=== PATIENT | female | born 1970 | race Caucasian/White ===

== ENCOUNTER 2017-01-31 20:29 | Observation (INO) | payer MEDICARE, MEDICAID ==
[~2017-01-31 20:29] MED LIST: ALLERGY RELIEF10 M1 PO; ALPRAZOLAM1 MG PO; AMBIEN10 MG PO; ARMOUR THYROID15 MG PO; EXCEDRIN1 TAB PO; GABAPENTIN300 MG PO; IBUPROFEN200 M1 PO; LEVAQUIN 750MG750 M1 PO; MINOCYCLINE100 MG PO; MORPHINE SULFA100 M1 PO; MORPHINE SULFAT30 M7 PO; MULTI VITAMINS1 TAB PO; OXYCODONE30 MG PO; PRAVASTATIN40 MG PO; SOMA350 MG PO; VENLAFAXINE75 MG PO; VITAMIN C500 MG PO; VITAMIN D35000 IU PO; XANAX1 MG PO
[2017-01-31] MEDS ORDERED: OXYCODONE HCL10 M1 PO (22:52)
[2017-01-31] MEDS ORDERED: MS CONTIN 330 MG/TAB PO (22:53)
[2017-01-31] MEDS ORDERED: OXYCONTIN15 M1 PO (22:53)
[2017-01-31] MEDS ORDERED: ALPRAZOLAM2 M3 PO (22:53)
[2017-01-31] MEDS ORDERED: GABAPENTIN TAB600 MG PO (22:54)
[2017-01-31] MEDS ORDERED: LIPITOR20 M2 PO (22:54)
[2017-01-31] MEDS ORDERED: COZAAR100 MG PO (22:54)
--- NOTE | 2017-01-31 23:10 | NUR ---
46 Y/O female patient admitted observation from ER via cart to room 203 with DX of fever, N/V/D, Seizure. Patient is post ictal. Responds to verbal stimuli but quickly falls back to sleep. Able to move self from cart to bed with verbal commands by sliding self from cart to bed. IVF infusing normal saline at 125 ML HR. continuing from ER. 2 IV sites patent. 20 gauge R AC started by EMS and 20 gauge L hand, started in ER by RN. IV fluids are infusing in L hand. Oxygen in place at 2 L/NC. Unable to orientate to room or call light system at this time due to post ictal state. Bed alarm on. Call light in reach.
--- NOTE | 2017-01-31 23:30 | NUR ---
Telementry applied per order. HR 97 RSR. Bed rales padded for seizure precautions. Resting with eyes closed. No signs of pain or distress. Bed alarm on.
[2017-01-31 23:41] VITALS: BP 156/98
[2017-01-31 23:47] VITALS: BP 156/98
--- NOTE | 2017-02-01 02:11 | NUR ---
Continues sleeping. Restless in bed at times. No seizures noted. Oxygen in place per N/C at 2L. IVF infusing NS at 125 ML/HR. Site to L hand patent. Bed alarm on. Call light in reach.
--- NOTE | 2017-02-01 02:51 | NUR ---
Sets off bed alarm. Ambulated to BR with one assist. Voids 600 ML of urine. Assisted back to bed. Positioned for comfort. Continues to bed very tired and lethargic. Minimal conversation with staff. Answers questions when asked. Oxygen in place at 2L/NC.
[2017-02-01 03:00] VITALS: BP 151/94
--- NOTE | 2017-02-01 03:48 | NUR ---
PATIENT'S ADMISSION ASSESSMENT PERFORMED BY THIS RN AT THIS TIME. PATIENT DOES NOT APPEAR TO BE IN ANY OBVIOUS DISTRESS AT THIS TIME. PATIENT IS OBSERVED TO BE VERY RESTLESS. PATIENT HAS PADDED BEDRAILS PER SEIZURE PRECAUTIONS, THOUGH NO SEIZURE ACTIVITY HAS BEEN OBSERVED SINCE ARRIVAL IN THE ED LAST EVENING. PATIENT CONTINUES TO HAVE NS RUNNING AT 125 ML/HR. PATIENT CONTINUES ON 2L/MIN OF O2 VIA NC. PATIENT DOES NOT AWAKEN TO HER NAME, BUT AWAKENS WHEN SHE IS JOSTLED. PATIENT IS VERY DROWSY, BUT IS ABLE TO COMPLETE THE ASSESSMENT QUESTIONS. IMMEDIATELY UPON FINISHING THE ASSESSMENT, PATIENT FELL BACK ASLEEP. HOB REMAINS ELEVATED AT A 35 DEGREE ANGLE. BED RAILS UP X2. BED ALARM ARMED. CLOSE MONITORING AND FREQUENT CHECKS CONTINUE.
--- NOTE | 2017-02-01 05:57 | NUR ---
IVF D/C'd per order. Patient restless and moving legs about in bed. Asked patient what was wrong, she stated her back hurt. Told patient she needed to let staff know when she was hurting so we could give her medication if she wanted. Asked if she would like Tylenol and she stated "yes". Tylenol 650 MG given PO now. Patient has had 2 Medium BM's. One soft formed and one loose. Dr. Ashby aware.
[2017-02-01 06:19] VITALS: BP 152/86
--- NOTE | 2017-02-01 07:12 | NUR ---
Report to Glenis LYNN
--- NOTE | 2017-02-01 08:15 | NUR ---
Patient sitting up in recliner. Drowsy and restless. Oriented x3. Rates pain 10/10 to lower back. Patient states "it's sharp aching pain." Uncooperative with am assessment. Bijan Keane APRN notified of patient's pain.
--- NOTE | 2017-02-01 08:20 | NUR ---
Bijan Felix APRN at bedside.
--- NOTE | 2017-02-01 08:40 | NUR ---
New medication orders from Bijan Valdez APRN. PO Oxycodone, neurontin, and ativan administered per orders. Patient swallows pills whole without difficulty. Denies nausea. INT to right ac and left hand both flush without difficulty. Patient denies needs or questions at this time. Fall precautions in place.
--- NOTE | 2017-02-01 09:52 | NUR ---
PRN IV zofran administered per patient request for nausea. Patient reports pain to lower back has decreased to 6/10. Patient is alert and cooperative at this time. Answers questions appropriately. Denies dizziness or shortness of breath. Assisted patient back to bed. Stand by assist. Denies needs. Fall precautions in place.
[2017-02-01 10:14] VITALS: BP 170/97
[2017-02-01] MEDS ORDERED: OXYCODONE HCL15 MG PO (12:03)
--- NOTE | 2017-02-01 14:00 | NUR ---
Attempted to obtain accurate medication list from patient. Patient is unable to recall most of her home medications. States that family is unavailable to bring in current medication list.
[2017-02-01 14:08] VITALS: BP 153/78
--- NOTE | 2017-02-01 14:14 | NUR ---
Bijan Keane APRN at bedside.
--- NOTE | 2017-02-01 14:20 | NUR ---
Patient resting in bed. Opens eyes when spoken to. Alert and oriented. Discharge instructions provided at this time. Patient verbalizes understanding. States "I'm just going to be right back in here." Asked patient to explain her statement. Patient states that she is out of her medications for pain and anxiety. States that she took more than prescribed over the past couple days while she was sick and has ran out. Education provided. Instructed patient to contact her PCP Dr. Beck for medication refills. Follow up appointment with Dr. Beck is scheduled for 02/04/17 @ 1230. Patient denies further questions at this time. Patient called her sister Berenice for a ride home, plans to arrive around 1700. Denies needs. Fall precautions in place.
[2017-02-01 15:47] VITALS: BP 145/99
--- NOTE | 2017-02-01 17:06 | NUR ---
Patient alert and oriented. Discharged to home. Sister at bedside to provide ride home. Patient denies questions. Out of facility via wheelchair to POV without incident. Steady gait noted.
== END 2017-02-01 17:06 | disposition home or self-care (01) ==
LOC: ED 20:29 → MED/SURG 22:59
PROVIDERS: ADMIT Family Medicine
DX: F11.23 Opioid dependence with withdrawal (principal); F13.239 Sedative, hypnotic or anxiolytic dependence with withdrawal, unspecified; K52.9 Noninfective gastroenteritis and colitis, unspecified; B34.9 Viral infection, unspecified; I10 Essential (primary) hypertension; G89.29 Other chronic pain; M54.9 Dorsalgia, unspecified; R53.81 Other malaise; T40.2X5A Adverse effect of other opioids, initial encounter
CPT/HCPCS: G0378; J1956; J2060; J2405; J7030; J7040

== ENCOUNTER → 2017-04-21 | Outpatient (CLI) | payer MEDICARE, MEDICAID ==
[~2017-04-21] MED LIST changes: +ALPRAZOLAM2 M3 PO; +COZAAR100 MG PO; +GABAPENTIN TAB600 MG PO; +LIPITOR20 M2 PO; +MS CONTIN 330 MG/TAB PO; +OXYCODONE HCL10 M1 PO; +OXYCODONE HCL15 MG PO; +OXYCONTIN15 M1 PO
== END ==
LOC: RAD 13:27
DX: R07.81 Pleurodynia (principal); S20.212A Contusion of left front wall of thorax, initial encounter; S20.211A Contusion of right front wall of thorax, initial encounter; S20.229A Contusion of unspecified back wall of thorax, initial encounter; S30.0XXA Contusion of lower back and pelvis, initial encounter; W11.XXXA Fall on and from ladder, initial encounter

== ENCOUNTER 2018-04-19 15:42 | Observation (INO) | payer MEDICARE, MEDICAID ==
[~2018-04-19] VITALS: Ht 162.6 cm; Wt 93.7 kg
[2018-04-19] MEDS ORDERED: VENLAFAXINE HYD75 MG PO ×2 (16:16→16:28)
[2018-04-19 16:33] LABS: HEMATOCRIT 45.7 % (37.0-47.0); HEMOGLOBIN 15.2 g/dL (12.5-16.0); MEAN CELL VOLUME 89 fl (78-100); MEAN CORPUSCULAR HEMOGLOBIN 30 pg (27-31); MEAN CORPUSCULAR HGB CONC 33 g/dL (33-37); MEAN PLATELET VOLUME 9.2 fl (7.4-10.4); PLATELET COUNT 450 K/mm3 (130-400); RED BLOOD COUNT 5.14 M/mm3 (4.10-5.30); RED CELL DISTRIBUTION WIDTH 14.3 % (11.5-14.5); WHITE BLOOD COUNT 18.7 K/mm3 (4.8-10.8)
[2018-04-19 16:49] LABS: ALBUMIN 4.7 g/dL (3.5-5.0); ALT/SGPT 31 U/L (9-52); AST-SGOT 24 U/L (14-36); BUN/CREATININE RATIO 16.3 (6.0-26.0); CALCIUM 9.3 mg/dL (8.4-10.2); CARBON DIOXIDE 25 mmol/L (22-30); GLUCOSE 115 mg/dL (65-105); POTASSIUM 3.2 mmol/L (3.6-5.0); SODIUM 140 mmol/L (137-145); TOTAL BILIRUBIN 0.5 mg/dL (0.2-1.3); TOTAL PROTEIN 8.6 g/dL (6.3-8.2)
[2018-04-19 17:07] LABS: URINE APPEARANCE HAZY; URINE COLOR YELLOW
[2018-04-19 17:08] LABS: URINE BILIRUBIN NEGATIVE (NEGATIVE); URINE BLOOD NEGATIVE (NEGATIVE); URINE KETONE NEGATIVE (NEGATIVE); URINE LEUKOCYTE ESTERASE TRACE (NEGATIVE); URINE NITRATE NEGATIVE (NEGATIVE); URINE PROTEIN(semi-quant) TRACE mg/dL (NEGATIVE); URINE UROBILINOGEN NORMAL (NORMAL); URINE WBC 0-1 /hpf (0-3)
[2018-04-19 17:13] LABS: ACETAMINOPHEN < 4 ug/mL (10-30); ALCOHOL IN-HOUSE < 10 mg/dL
[2018-04-19 18:04] LABS: LYMPHOCYTE 8 % (20-51); MONOCYTE 3 % (3-10); NEUTROPHILS 89 % (42-75)
[2018-04-19 22:37] VITALS: BP 160/94
[2018-04-19 22:38] VITALS: BP 160/94
[2018-04-20 03:36] VITALS: BP 165/90
[2018-04-20 06:18] LABS: EOS % 0.3 % (1.0-5.0); HEMATOCRIT 41.3 % (37.0-47.0); HEMOGLOBIN 13.6 g/dL (12.5-16.0); LYMPH# 3.3 (1.50-4.00); MEAN CELL VOLUME 90 fl (78-100); MEAN CORPUSCULAR HEMOGLOBIN 30 pg (27-31); MEAN CORPUSCULAR HGB CONC 33 g/dL (33-37); MEAN PLATELET VOLUME 9.3 fl (7.4-10.4); MONO # 1.5 (0.20-0.80); PLATELET COUNT 371 K/mm3 (130-400); RED BLOOD COUNT 4.59 M/mm3 (4.10-5.30); RED CELL DISTRIBUTION WIDTH 14.2 % (11.5-14.5); WHITE BLOOD COUNT 15.4 K/mm3 (4.8-10.8)
[2018-04-20 06:24] VITALS: BP 156/83
[2018-04-20 06:24] LABS: NEU # 10.6 (1.40-6.50)
[2018-04-20 06:29] LABS: BUN/CREATININE RATIO 17.1 (6.0-26.0); CALCIUM 8.7 mg/dL (8.4-10.2); POTASSIUM 3.1 mmol/L (3.6-5.0)
[2018-04-20 11:17] VITALS: BP 154/99
[2018-04-20] MEDS ORDERED: POTASSIUM CHLO20 ME3 PO (12:38)
[2018-04-20 15:02] VITALS: BP 156/99
== END 2018-04-20 17:55 | disposition home or self-care (01) ==
LOC: ED 15:42 → MED/SURG 19:53
PROVIDERS: Nurse Practitioner Family; ADMIT Nurse Practitioner Family
DX: F13.230 Sedative, hypnotic or anxiolytic dependence with withdrawal, uncomplicated (principal); R56.9 Unspecified convulsions; T42.4X6A Underdosing of benzodiazepines, initial encounter; Z91.138 Patient's unintentional underdosing of medication regimen for other reason; Y92.009 Unspecified place in unspecified non-institutional (private) residence as the place of occurrence of the external cause; F41.9 Anxiety disorder, unspecified; G89.29 Other chronic pain; E87.6 Hypokalemia; G40.909 Epilepsy, unspecified, not intractable, without status epilepticus; R50.9 Fever, unspecified; S00.83XA Contusion of other part of head, initial encounter; S01.512A Laceration without foreign body of oral cavity, initial encounter; Z91.14 Patient's other noncompliance with medication regimen; F11.10 Opioid abuse, uncomplicated; R30.0 Dysuria; F17.210 Nicotine dependence, cigarettes, uncomplicated
CPT/HCPCS: G0378; J2060; J7030

== ENCOUNTER 2018-04-23 18:35 | Observation (INO) | payer MEDICARE, MEDICAID ==
[~2018-04-23] VITALS: Ht 172.7 cm; Wt 89.1 kg
[~2018-04-23 18:35] MED LIST changes: +POTASSIUM CHLO20 ME3 PO; +VENLAFAXINE HYD75 MG PO
[2018-04-23 19:16] LABS: HEMATOCRIT 50.2 % (37.0-47.0); HEMOGLOBIN 16.3 g/dL (12.5-16.0); LYMPH# 3.5 (1.50-4.00); MEAN CELL VOLUME 91 fl (78-100); MEAN CORPUSCULAR HEMOGLOBIN 30 pg (27-31); MEAN CORPUSCULAR HGB CONC 33 g/dL (33-37); MEAN PLATELET VOLUME 9.9 fl (7.4-10.4); MONO # 1.3 (0.20-0.80); RED BLOOD COUNT 5.53 M/mm3 (4.10-5.30); RED CELL DISTRIBUTION WIDTH 14.8 % (11.5-14.5); WHITE BLOOD COUNT 15.3 K/mm3 (4.8-10.8)
[2018-04-23 19:17] LABS: NEU # 10.4 (1.40-6.50); PLATELET COUNT 590 K/mm3 (130-400)
[2018-04-23 19:25] LABS: ALBUMIN 4.9 g/dL (3.5-5.0); ALT/SGPT 48 U/L (9-52); AST-SGOT 38 U/L (14-36); BUN/CREATININE RATIO 36.9 (6.0-26.0); CALCIUM 9.8 mg/dL (8.4-10.2); CARBON DIOXIDE 24 mmol/L (22-30); GLUCOSE 144 mg/dL (65-105); POTASSIUM 3.2 mmol/L (3.6-5.0); SODIUM 152 mmol/L (137-145); TOTAL BILIRUBIN 1.1 mg/dL (0.2-1.3); TOTAL PROTEIN 9.5 g/dL (6.3-8.2)
[2018-04-23 19:26] LABS: ACETAMINOPHEN < 4 ug/mL (10-30); ALCOHOL IN-HOUSE < 10 mg/dL
[2018-04-23 20:04] LABS: URINE APPEARANCE CLEAR; URINE BILIRUBIN NEGATIVE (NEGATIVE); URINE BLOOD 50 ery/uL (NEGATIVE); URINE COLOR YELLOW; URINE GLUCOSE NEGATIVE (NEGATIVE); URINE KETONE 2+ (NEGATIVE); URINE LEUKOCYTE ESTERASE NEGATIVE (NEGATIVE); URINE NITRATE NEGATIVE (NEGATIVE); URINE PROTEIN(semi-quant) 3+ mg/dL (NEGATIVE); URINE UROBILINOGEN NORMAL (NORMAL)
[2018-04-23 20:05] LABS: URINE MUCUS PRESENT (NOT PRESENT)
[2018-04-23 23:11] VITALS: BP 170/106
[2018-04-24 02:49] VITALS: BP 179/106
[2018-04-24 06:23] VITALS: BP 183/96
[2018-04-24 08:07] LABS: ALBUMIN 4.3 g/dL (3.5-5.0); BUN/CREATININE RATIO 44.1 (6.0-26.0); CALCIUM 8.9 mg/dL (8.4-10.2); HEMATOCRIT 45.7 % (37.0-47.0); HEMOGLOBIN 14.9 g/dL (12.5-16.0); MEAN CELL VOLUME 92 fl (78-100); MEAN CORPUSCULAR HEMOGLOBIN 30 pg (27-31); MEAN CORPUSCULAR HGB CONC 33 g/dL (33-37); PLATELET COUNT 480 K/mm3 (130-400); RED BLOOD COUNT 4.98 M/mm3 (4.10-5.30); RED CELL DISTRIBUTION WIDTH 14.5 % (11.5-14.5); TOTAL BILIRUBIN 1.1 mg/dL (0.2-1.3); TOTAL PROTEIN 7.9 g/dL (6.3-8.2); WHITE BLOOD COUNT 20.4 K/mm3 (4.8-10.8)
[2018-04-24 08:08] LABS: POTASSIUM 2.9 mmol/L (3.6-5.0)
[2018-04-24 08:19] LABS: BASO # 0.1 (0.02-0.10); EOS % 0.1 % (1.0-5.0); LYMPH# 4.5 (1.50-4.00)
[2018-04-24 08:23] LABS: MONO # 1.6 (0.20-0.80); NEU # 14.5 (1.40-6.50)
[2018-04-24 08:38] LABS: URINE APPEARANCE CLOUDY; URINE BILIRUBIN NEGATIVE (NEGATIVE); URINE BLOOD 50 ery/uL (NEGATIVE); URINE COLOR YELLOW; URINE GLUCOSE NEGATIVE (NEGATIVE); URINE KETONE 2+ (NEGATIVE); URINE LEUKOCYTE ESTERASE 1+ (NEGATIVE); URINE NITRATE NEGATIVE (NEGATIVE); URINE PROTEIN(semi-quant) 1+ mg/dL (NEGATIVE); URINE UROBILINOGEN NORMAL (NORMAL)
[2018-04-24 08:39] LABS: URINE MUCUS PRESENT (NOT PRESENT); URINE WBC 31-50 /hpf (0-3)
[2018-04-24 10:13] LABS: URINE APPEARANCE CLOUDY; URINE COLOR YELLOW
[2018-04-24 10:14] LABS: PH-URINE 5.5 (5.0 - 8.0); URINE BILIRUBIN NEGATIVE (NEGATIVE); URINE BLOOD TRACE (NEGATIVE); URINE KETONE 1+ (NEGATIVE); URINE LEUKOCYTE ESTERASE NEGATIVE (NEGATIVE); URINE MUCUS PRESENT (NOT PRESENT); URINE NITRATE NEGATIVE (NEGATIVE); URINE PROTEIN(semi-quant) 1+ mg/dL (NEGATIVE); URINE UROBILINOGEN NORMAL (NORMAL)
[2018-04-24 11:15] VITALS: BP 167/106
[2018-04-24 15:18] VITALS: BP 164/85
[2018-04-24 18:20] VITALS: BP 158/86
[2018-04-24] MEDS ORDERED: POTASSIUM CHLO20 ME3 PO (19:24)
[2018-04-24] MEDS ORDERED: CARBIDOPA/LEVODOPA PO (19:24)
[2018-04-24] MEDS ORDERED: LEVOTHYROXIN0.025 MG PO (19:25)
== END 2018-04-24 19:25 | disposition other institution (70) ==
LOC: ED 18:35 → MED/SURG 22:45
PROVIDERS: ADMIT Family Medicine
DX: E87.0 Hyperosmolality and hypernatremia (principal); E86.0 Dehydration; E87.6 Hypokalemia; R41.82 Altered mental status, unspecified; D72.829 Elevated white blood cell count, unspecified; R29.898 Other symptoms and signs involving the musculoskeletal system; I10 Essential (primary) hypertension; Z79.899 Other long term (current) drug therapy; Z79.891 Long term (current) use of opiate analgesic; G89.29 Other chronic pain
CPT/HCPCS: G0378; J7030

== ENCOUNTER → 2018-10-19 | Outpatient (CLI) | payer MEDICARE, MEDICAID ==
[2018-04-27 06:22] VITALS: BP 148/87
[~2018-10-19] MED LIST changes: +CARBIDOPA/LEVODOPA PO; +LEVOTHYROXIN0.025 MG PO
== END ==
LOC: RAD 12:55
DX: M17.12 Unilateral primary osteoarthritis, left knee (principal); S83.92XA Sprain of unspecified site of left knee, initial encounter

== ENCOUNTER 2020-05-10 11:00 | Outpatient (RCR) | payer MEDICARE, MEDICAID ==
[2018-04-27 06:22] VITALS: BP 148/87
== END 2020-05-10 11:30 | disposition still patient (30) ==
LOC: PT 11:00
DX: M54.5 Low back pain (principal)

== ENCOUNTER → 2020-12-06 | Outpatient (CLI) | payer MEDICARE, MEDICAID ==
[2018-04-27 06:22] VITALS: BP 148/87
== END ==
LOC: RAD 10:00
DX: N92.0 Excessive and frequent menstruation with regular cycle (principal)

== ENCOUNTER 2021-03-13 13:11 | Outpatient (RCR) | payer MEDICARE, MEDICAID ==
[2018-04-27 06:22] VITALS: BP 148/87
== END 2021-06-11 | disposition still patient (30) ==
LOC: PT
DX: M25.552 Pain in left hip (principal)

== ENCOUNTER → 2021-05-27 | Outpatient (CLI) | payer MEDICARE, MEDICAID ==
[~2021-05-27] MED LIST changes: +CYCLOBENZAPRINE10 M1 PO; +KLONOPIN 1MG1 MG PO
== END ==
LOC: RAD 13:17
DX: S99.911D Unspecified injury of right ankle, subsequent encounter (principal)

== ENCOUNTER 2021-07-23 12:06 | Emergency (ER) | payer MEDICARE, MEDICAID ==
[~2021-07-23 12:06] MED LIST changes: -CYCLOBENZAPRINE10 M1 PO; -KLONOPIN 1MG1 MG PO
[2021-07-23] MEDS ORDERED: GABAPENTIN TAB600 MG PO (14:05)
[2021-07-23] MEDS ORDERED: KLONOPIN 1MG1 MG PO (14:06)
[2021-07-23] MEDS ORDERED: CYCLOBENZAPRINE10 M1 PO (14:06)
[2021-07-23 14:28] VITALS: BP 145/87
== END 2021-07-23 14:36 | disposition home or self-care (01) ==
LOC: ED 12:06
DX: S92.354A Nondisplaced fracture of fifth metatarsal bone, right foot, initial encounter for closed fracture (principal); I10 Essential (primary) hypertension; F17.210 Nicotine dependence, cigarettes, uncomplicated; Z79.899 Other long term (current) drug therapy; W01.0XXA Fall on same level from slipping, tripping and stumbling without subsequent striking against object, initial encounter; Y93.01 Activity, walking, marching and hiking

== ENCOUNTER → 2021-10-01 | Outpatient (CLI) | payer MEDICARE, MEDICAID ==
[~2021-10-01] MED LIST changes: +CYCLOBENZAPRINE10 M1 PO; +KLONOPIN 1MG1 MG PO
== END ==
LOC: RAD 08:08
DX: M85.88 Other specified disorders of bone density and structure, other site (principal); Z96.652 Presence of left artificial knee joint

== ENCOUNTER 2024-02-27 15:26 | Emergency (ER) | payer MEDICARE, MEDICAID ==
[~2024-02-27] VITALS: Ht 162.6 cm; Wt 87.3 kg
[2024-02-27] MEDS ORDERED: OXYCODONE HCL10 M1 PO (15:39)
[2024-02-27] MEDS ORDERED: Ketorolac 30 MG/ML VIAL IV ONE (16:15)
[2024-02-27] MEDS ORDERED: fentaNYL 100 MCG/2 ML VIAL IV ONE (17:15)
[2024-02-27 17:29] VITALS: BP 155/99
== END 2024-02-27 17:45 | disposition home or self-care (01) ==
LOC: ED 15:26
DX: S39.012A Strain of muscle, fascia and tendon of lower back, initial encounter (principal); Z98.1 Arthrodesis status; W18.30XA Fall on same level, unspecified, initial encounter; Y92.009 Unspecified place in unspecified non-institutional (private) residence as the place of occurrence of the external cause
CPT/HCPCS: J1885; J3010

== ENCOUNTER 2024-05-28 20:13 | Emergency (ER) | payer MEDICARE, MEDICAID ==
[~2024-05-28] VITALS: Ht 162.6 cm; Wt 87.3 kg
[2024-05-28] MEDS ORDERED: NS 1,000 ML IV SCH ×2 (20:30→21:30)
[2024-05-28 20:41] LABS: BASO # 0.05 K/mm3 (0.02-0.10); EOS # 0.33 K/mm3 (0.04-0.40); EOS % 4.6 % (1.0-5.0); HEMATOCRIT 34.2 % (37.0-47.0); HEMOGLOBIN 11.2 g/dL (12.5-16.0); LYMPH# 2.73 K/mm3 (1.50-4.00); MEAN CELL VOLUME 88 fl (78-100); MEAN CORPUSCULAR HEMOGLOBIN 29 pg (27-31); MEAN CORPUSCULAR HGB CONC 33 g/dL (33-37); MEAN PLATELET VOLUME 9.8 fl (7.4-10.4); MONO # 0.65 K/mm3 (0.20-0.80); NEU # 3.48 K/mm3 (1.40-6.50); PLATELET COUNT 361 K/mm3 (130-400); RED BLOOD COUNT 3.91 M/mm3 (4.10-5.30); RED CELL DISTRIBUTION WIDTH 14.9 % (11.5-14.5); WHITE BLOOD COUNT 7.3 K/mm3 (4.8-10.8)
[2024-05-28 20:45] LABS: ALBUMIN 3.8 g/dL (3.5-5.0); SODIUM 143 mmol/L (136-145)
[2024-05-28] MEDS ORDERED: Naloxone 0.4 MG/ML VIAL IV ONE (20:45)
[2024-05-28 20:46] LABS: CALCIUM 9.7 mg/dL (8.3-10.5)
[2024-05-28 20:48] LABS: GLUCOSE 85 mg/dL (65-105); TOTAL PROTEIN 6.4 g/dL (6.4-8.3)
[2024-05-28 20:49] LABS: CARBON DIOXIDE 21 mmol/L (22-29)
[2024-05-28 20:53] LABS: ALCOHOL IN-HOUSE < 10 mg/dL (<10); AST-SGOT 22 U/L (5-34)
[2024-05-28 20:54] LABS: ALT/SGPT 16 U/L (0-55)
[2024-05-28 20:55] LABS: ACETAMINOPHEN 3 ug/mL
[2024-05-28 23:23] LABS: TOTAL BILIRUBIN 0.4 mg/dL (0.2-1.2)
[2024-05-29 09:14] VITALS: BP 151/92
[2024-05-29] MEDS ORDERED: Ibuprofen 200 MG TAB PO ONE (10:30)
[2024-05-29] MEDS ORDERED: Nicotine 14 MG DAILY PATCH TD ONE (10:45)
[2024-05-29 10:58] VITALS: BP 145/86
[2024-05-29 12:59] VITALS: BP 141/76
[2024-05-29 14:02] VITALS: BP 141/76
== END 2024-05-29 14:04 ==
LOC: ED 20:13
PROVIDERS: Physician Assistant
DX: T42.4X2A Poisoning by benzodiazepines, intentional self-harm, initial encounter (principal); F17.210 Nicotine dependence, cigarettes, uncomplicated
CPT/HCPCS: J2310; J7030